=== PATIENT | female | born 1995 | race Caucasian/White ===

== ENCOUNTER 2019-02-19 05:36 | Emergency (ER) | payer OTHER ==
[2019-02-19 06:11] LABS: PLATELET COUNT 589 10^3/uL (150-400)
[2019-02-19] MEDS ORDERED: NS 1,000 ML IV ONE (06:20)
[2019-02-19] MEDS ORDERED: ONDANSETRON 4 MG/2 ML VIAL IVP ONE (06:21)
[2019-02-19] MEDS ORDERED: OXYCODONE/APAP 5/325 TAB PO ONE (06:21)
--- NOTE | 2019-02-19 06:29 | EDPHY ---
H & P Stated Complaint: SICKLE CELL CRISIS, JOINTS, BACK Time Seen by Provider: 02/19/19 05:48 HPI/ROS: HPI The patient presents with painful right elbow, shoulders, knees which occurred at about 5:30 a.m. This morning and awoke her from sleep. She thought maybe she had sprained her elbow, however pain continued. Pain is achy, worse with range of motion. She does not have any fever, shortness of breath, chest pain. She has a history of sickle cell disease, she has been seen by Dr. Banegas here in [place], last in July of 2018. She is not on any daily medications. She previously lived in [place] and had to be admitted to the hospital about once a year, usually in the spring or fall when the weather was changing. She has not taken any pain medication at home, however has a prescription from [facility] from this admission. She is status post splenectomy. She has had acute chest many years ago. REVIEW OF SYSTEMS 10 systems were reviewed and negative with the exception of the elements mentioned in the history of present illness. PMHx: Sickle cell disease as above Soc Hx: Moved to [place] from [place] in May of 2018 PHYSICAL General Appearance: Alert, no distress Eyes: Pupils equal and round no pallor or injection ENT, Mouth: Mucous membranes moist Respiratory: There are no retractions, lungs are clear to auscultation Cardiovascular: Regular rate and rhythm Gastrointestinal: Abdomen is soft and non-tender, no masses, bowel sounds normal Neurological: A&O, moves all extremities Skin: Warm and dry, no rashes Musculoskeletal: Neck is supple non tender Extremities: symmetrical, full range of motion Psychiatric: Patient is oriented X 3, there is no agitation Source: Patient Exam Limitations: No limitations - Personal History LMP (Females 10-55): 1-7 Days Ago Current Tetanus Diphtheria and Acellular Pertussis (TDAP): Yes - Medical/Surgical History Hx Asthma: No Hx Chronic Respiratory Disease: No Hx Diabetes: No Hx Cardiac Disease: No Hx Renal Disease: No Hx Cirrhosis: No Hx Alcoholism: No Hx HIV/AIDS: No Hx Splenectomy or Spleen Trauma: No Other PMH: SICKLE CELL DISEASE, SPLEENECTOMY - Social History Smoking Status: Never smoked Constitutional: Initial Vital Signs Temperature (C) 36.8 C 02/19/19 05:42 Heart Rate 69 02/19/19 05:42 Respiratory Rate 16 02/19/19 05:42 Blood Pressure 129/69 H 02/19/19 05:42 O2 Sat (%) 97 02/19/19 05:42 O2 Delivery Mode Room Air Allergies/Adverse Reactions: Cephalosporins Allergy (Verified 02/19/19 05:41) clindamycin Allergy (Verified 02/19/19 05:41) doxycycline Allergy (Verified 02/19/19 05:41) Penicillins Allergy (Verified 02/19/19 05:41) Sulfa (Sulfonamide Antibiotics) Allergy (Verified 02/19/19 05:41) Home Medications: Medication Instructions Recorded NK [No Known Home Meds] 02/19/19 Medical Decision Making Differential Diagnosis: 23-year-old female with sickle cell disease presents from home with about 1 hr of joint pains. Here, vital signs are normal and she is generally well- appearing. No joint effusions are present. She typically gets pain in her elbows with pain crises so this is not unusual for her. She thinks the change in the weather may have triggered this. She does not have any chest pain, hypoxia, shortness of breath concern for acute chest. She does not have any signs of infection. She says that when her pain is at this level she usually responds to Percocet, Zofran. Labs look to be at her baseline with hemoglobin at about 9. Her reticulocyte count was similar to previous levels. I do not think she is having a severe acute sickle cell crisis, we likely have caused her symptoms early. I looked her up in the [facility] and she does not have any opiate pain medication prescriptions. I looked her up in [facility] and she has not had any visits there. She felt much better after receiving Percocet here. She will be discharged home. I have encouraged her to follow up with Dr. Banegas. - Data Points Laboratory Results: Laboratory Results 02/19/19 06:05 02/19/19 06:05 02/19/19 02/19/19 06:05 06:05 WBC 18.11 10^3/uL H 10^3/uL (3.80-9.50) RBC 4.14 10^6/uL L 10^6/uL (4.18-5.33) Hgb 9.3 g/dL L g/dL (12.6-16.3) Hct 27.9 % L % (38.0-47.0) MCV 67.4 fL L fL (81.5-99.8) MCH 22.5 pg L pg (27.9-34.1) MCHC 33.3 g/dL g/dL (32.4-36.7) RDW 19.9 % H % (11.5-15.2) Plt Count 589 10^3/uL H 10^3/uL (150-400) MPV 9.7 fL fL (8.7-11.7) Neut % (Auto) Not Reported Lymph % (Auto) Not Reported [place] % (Auto) Not Reported Eos % (Auto) Not Reported Baso % (Auto) Not Reported Nucleat RBC Rel Count Not Reported Absolute Neuts (auto) Not Reported Absolute Lymphs (auto) Not Reported Absolute Monos (auto) Not Reported Absolute Eos (auto) Not Reported Absolute Basos (auto) Not Reported Absolute Nucleated RBC Not Reported Immature Gran % Not Reported Seg Neutrophils % 54.1 % % Band Neutrophils % 2.0 % % Lymphocytes % 30.6 % % Monocytes % 9.2 % % Eosinophils % 3.1 % % Basophils % 1.0 % % Metamyelocytes % 0.0 % % Myelocytes % 0.0 % % Promyelocytes % 0.0 % % Blast Cells % 0.0 % % Immature Gran # Not Reported Absolute Seg Neuts 9.80 10^3/uL H 10^3/uL (1.70-6.50) Absolute Band Neuts 0.36 10^3/uL 10^3/uL (0.00-0.70) Absolute Lymphocytes 5.54 10^3/uL H 10^3/uL (1.00-3.00) Absolute Monocytes 1.67 10^3/uL H 10^3/uL (0.30-0.80) Absolute Eosinophils 0.56 10^3/uL H 10^3/uL (0.03-0.40) Absolute Basophils 0.18 10^3/uL H 10^3/uL (0.02-0.10) Absolute Metamyelocyte 0.00 10^3/mL 10^3/mL (0.00-0.00) Absolute Myelocytes 0.00 10^3/mL 10^3/mL (0.00-0.00) Absolute Promyelocytes 0.00 10^3/uL 10^3/uL (0.00-0.00) Absolute Plasma Cells 0.00 10^3/uL 10^3/uL (0.00-0.00) Nucleated RBCs 17.3 /100 WBC H /100 WBC (0-0) Absolute Blast Cells 0.00 10^3/uL 10^3/uL (0.00-0.00) Plasma Cells % 0.0 % % Platelet Estimate INCREASED H (ADEQ) Polychromasia 3+ H Hypochromasia 2+ H Microcytic Cells 1+ H Pappenheimer Bodies 3+ H Target Cells 1+ H Tear Drop Cells 2+ H Oval Macrocytes 1+ H Romero-[place] Bodies 2+ H Elliptocytes 1+ H Schistocytes 1+ H Smear Review By Pending Absolute Retic 0.419 10^6/uL H 10^6/uL (0.050-0.117) Percent Retic 10.40 % H % (0.98-2.67) Sodium 138 mEq/L mEq/L (135-145) Potassium 4.7 mEq/L mEq/L (3.5-5.2) Chloride 106 mEq/L mEq/L (97-110) Carbon Dioxide 23 mEq/l mEq/l (22-31) Anion Gap 9 mEq/L mEq/L (6-14) BUN 7 mg/dL mg/dL (7-23) Creatinine 0.6 mg/dL mg/dL (0.6-1.0) Estimated GFR > 60 Glucose 95 mg/dL mg/dL (70-100) Calcium 9.3 mg/dL mg/dL (8.5-10.4) Total Bilirubin 3.9 mg/dL H mg/dL (0.1-1.4) Conjugated Bilirubin 0.3 mg/dL mg/dL (0.0-0.5) Unconjugated Bilirubin 3.6 mg/dL H mg/dL (0.0-1.1) AST 45 IU/L IU/L (14-46) ALT 43 IU/L IU/L (9-52) Alkaline Phosphatase 63 IU/L IU/L (38-126) Total Protein 7.1 g/dL g/dL (6.3-8.2) Albumin 4.1 g/dL g/dL (3.5-5.0) Medications Given: Discontinued Medications Sodium Chloride (Ns) 1,000 mls @ 0 mls/hr IV EDNOW ONE; Wide Open PRN Reason: Protocol Stop: 02/19/19 06:21 Last Admin: 02/19/19 06:27 Dose: 1,000 mls Ondansetron HCl (Zofran) 4 mg IVP EDNOW ONE Stop: 02/19/19 06:22 Last Admin: 02/19/19 06:27 Dose: 4 mg Oxycodone/Acetaminophen (Percocet 5/325) 2 tab PO EDNOW ONE Stop: 02/19/19 06:22 Last Admin: 02/19/19 06:27 Dose: 2 tab Departure - Departure Disposition: Home, Routine, Self-Care Clinical Impression: Sickle cell pain crisis Condition: Good Instructions: Sickle Cell Crisis (ED) Additional Instructions: Please call for an appointment with her safety patrol officer in 1-2 days. Please return to the emergency department if your worse in any way. Referrals: Jeb Banegas MD [Medical Doctor] - As per Instructions
[2019-02-19 07:37] VITALS: BP 133/52
== END 2019-02-19 07:45 | disposition home or self-care (01) ==
DX: D57.219 Sickle-cell/Hb-C disease with crisis, unspecified (principal); E86.9 Volume depletion, unspecified
CPT/HCPCS: 96374; J2405

== ENCOUNTER 2019-02-19 13:57 | Inpatient (IN) | payer OTHER ==
--- NOTE | 2019-02-19 14:44 | EDPHY ---
H & P Time Seen by Provider: 02/19/19 14:43 HPI/ROS: CHIEF COMPLAINT: Extremity pain, sickle cell crisis HISTORY OF PRESENT ILLNESS: Patient was seen earlier today after waking up between 430 and 5:00 a.m. With pain in her shoulders elbows knees, which is her typical acute sickle cell crisis exacerbation. She moved here from [place] recently to attend [employer] [facility]; was last admitted for her sickle cell about 12 months ago in [place]. She was treated with Percocet and IV fluids and had labs that did not show acute hematologic abnormality and was discharged. She presents now with worsening pain not helped by Percocet which is worsened severe. Not associated with fever chest pain or shortness of breath or headache. Not associated with joint swelling but a little bit worse with movement of extremities. REVIEW OF SYSTEMS: Eye: no change in vision ENT: no sore throat Cardiac: no chest pain or syncope Pulmonary: no cough or SOB Abdomen: no vomiting, diarrhea, abdominal pain Musculoskeletal: HPI Skin: no rash Neuro: no headache Constitutional: no fever : no urinary symptoms A comprehensive 10 point review of systems is otherwise negative aside from elements mentioned in the history of present illness. PAST MEDICAL HISTORY: Includes sickle cell disease, splenectomy, wisdom tooth surgery Social history: Here with her boyfriend, student, recently moved from [place] as above. General Appearance: Alert and conversant, cooperative. Eyes: No scleral icterus. ENT, Mouth: Normal mucous membranes. Respiratory: Normal respiratory effort, breath sounds equal, lungs are clear to auscultation. Speaks in full sentences with no wheezing. Cardiovascular: Regular rate and rhythm. Gastrointestinal: Abdomen is soft and non tender. Neurological: Alert, face symmetric, normal motor and sensory in extremities. Skin: Warm and dry, no rashes. Musculoskeletal: She does not have joint effusions and has good active range of motion of both shoulders and elbows wrists and knees and hips. Psychiatric: Not agitated. Emergency Department course/MDM: Patient presents with clinical exam exacerbation of her sickle cell disease without evidence on history or physical of acute chest syndrome or sepsis. IV morphine 6 mg, saline hydration. Saturation noted at 100%. Discussed with her home health nurse and hospitalist. Smoking Status: Never smoked Constitutional: Initial Vital Signs Temperature (C) 36.9 C 02/19/19 14:08 Heart Rate 58 L 02/19/19 14:08 Respiratory Rate 18 04/22/19 14:08 Blood Pressure 140/91 H 02/19/19 14:08 O2 Sat (%) 100 02/19/19 14:08 O2 Delivery Mode Room Air Allergies/Adverse Reactions: Cephalosporins Allergy (Verified 02/19/19 14:07) clindamycin Allergy (Verified 02/19/19 14:07) doxycycline Allergy (Verified 02/19/19 14:07) Penicillins Allergy (Verified 02/19/19 14:07) Sulfa (Sulfonamide Antibiotics) Allergy (Verified 02/19/19 14:07) Home Medications: Medication Instructions Recorded NK [No Known Home Meds] 02/19/19 Medical Decision Making Differential Diagnosis: Differential for sickle cell and increased pain considered including but not limited to sickle cell crisis, acute chest syndrome, septic joint, aplastic anemia Consult/Admit Bed Type: [place] [id number], [place] [id number] - Data Points Laboratory Results: Laboratory Results 02/19/19 15:10 02/19/19 15:10 02/19/19 02/19/19 02/19/19 15:10 15:10 15:10 WBC 21.49 10^3/uL H 10^3/uL (3.80-9.50) RBC 3.98 10^6/uL L 10^6/uL (4.18-5.33) Hgb 8.6 g/dL L g/dL (12.6-16.3) Hct 25.8 % L % (38.0-47.0) MCV 64.8 fL L fL (81.5-99.8) MCH 21.6 pg L pg (27.9-34.1) MCHC 33.3 g/dL g/dL (32.4-36.7) RDW 20.7 % H % (11.5-15.2) Plt Count 540 10^3/uL H 10^3/uL (150-400) MPV 9.9 fL fL (8.7-11.7) Neut % (Auto) 0.0 % L % (39.3-74.2) Lymph % (Auto) 0.0 % L % (15.0-45.0) [place] % (Auto) 0.0 % L % (4.5-13.0) Eos % (Auto) 0.0 % L % (0.6-7.6) Baso % (Auto) 0.0 % L % (0.3-1.7) Nucleat RBC Rel Count Not Reported Absolute Neuts (auto) 0.00 10^3/uL L 10^3/uL (1.70-6.50) Absolute Lymphs (auto) 0.00 10^3/uL L 10^3/uL (1.00-3.00) Absolute Monos (auto) 0.00 10^3/uL L 10^3/uL (0.30-0.80) Absolute Eos (auto) 0.00 10^3/uL L 10^3/uL (0.03-0.40) Absolute Basos (auto) 0.00 10^3/uL L 10^3/uL (0.02-0.10) Absolute Nucleated RBC 0.00 10^3/uL 10^3/uL (0-0.01) Immature Gran % % % (0.0-1.1) Immature Gran # 10^3/uL 10^3/uL (0.00-0.10) Platelet Estimate TNP Smear Review By TNP Absolute Retic 0.476 10^6/uL H 10^6/uL (0.050-0.117) Percent Retic 11.15 % H % (0.98-2.67) Sodium 130 mEq/L L mEq/L (135-145) Potassium 4.7 mEq/L mEq/L (3.5-5.2) Chloride 100 mEq/L mEq/L (97-110) Carbon Dioxide 21 mEq/l L mEq/l (22-31) Anion Gap 9 mEq/L mEq/L (6-14) BUN 3 mg/dL L mg/dL (7-23) Creatinine 0.5 mg/dL L mg/dL (0.6-1.0) Estimated GFR > 60 Glucose 112 mg/dL H mg/dL (70-100) Calcium 9.0 mg/dL mg/dL (8.5-10.4) Total Bilirubin 3.8 mg/dL H mg/dL (0.1-1.4) Conjugated Bilirubin 0.4 mg/dL mg/dL (0.0-0.5) Unconjugated Bilirubin 3.4 mg/dL H mg/dL (0.0-1.1) AST 46 IU/L IU/L (14-46) ALT 44 IU/L IU/L (9-52) Alkaline Phosphatase 50 IU/L IU/L (38-126) Total Protein 7.0 g/dL g/dL (6.3-8.2) Albumin 4.2 g/dL g/dL (3.5-5.0) Beta HCG, Qual NEGATIVE Medications Given: Folic Acid (Folic Acid) 1 mg PO DAILY ASAEL Stop: 08/18/19 16:14 Last Admin: 02/19/19 16:52 Dose: 1 mg Hydromorphone HCl (Dilaudid) 0.5 - 2 mg IVP Q2HRS PRN PRN Reason: Pain, Severe Stop: 03/01/19 15:27 Last Admin: 02/19/19 17:41 Dose: 0.5 mg Sodium Chloride (Ns) 1,000 mls @ 125 mls/hr IV CONT ASAEL Stop: 08/18/19 15:29 Last Admin: 02/19/19 16:42 Dose: 1,000 mls Ondansetron HCl (Zofran) 4 mg IVP Q4HRS PRN PRN Reason: Nausea/Vomiting, Can't Take PO Stop: 08/18/19 15:27 Last Admin: 02/19/19 17:45 Dose: 4 mg Discontinued Medications Sodium Chloride (Ns) 1,000 mls @ 0 mls/hr IV EDNOW ONE; Wide Open PRN Reason: Protocol Stop: 02/19/19 14:54 Last Admin: 02/19/19 15:08 Dose: 1,000 mls Sodium Chloride (Ns) 1,000 mls @ 0 mls/hr IV EDNOW ONE; Wide Open PRN Reason: Protocol Stop: 02/19/19 15:40 Last Admin: 02/19/19 15:49 Dose: 1,000 mls Morphine Sulfate (Morphine) 6 mg IVP EDNOW ONE Stop: 02/19/19 14:54 Last Admin: 02/19/19 15:07 Dose: 6 mg Departure - Departure Disposition: [facility] In[facility] Acute Clinical Impression: Sickle cell pain crisis Condition: Good
[2019-02-19] MEDS ORDERED: NS 1,000 ML IV ONE ×2 (14:53→15:39)
[2019-02-19 15:26] LABS: PLATELET COUNT 540 10^3/uL (150-400)
[2019-02-19] MEDS ORDERED: ACETAMINOPHEN 325 MG TAB PO PRN ×2 (15:28)
[2019-02-19] MEDS ORDERED: oxyCODONE IR 5 MG TAB PO PRN (15:28)
[2019-02-19] MEDS ORDERED: PROMETHAZINE HCL 25 MG/ML INJ IVP PRN (15:28)
[2019-02-19] MEDS ORDERED: ONDANSETRON DISINTEGRATING 4 MG TAB PO PRN (15:28)
--- NOTE | 2019-02-19 16:01 | PDGENHP ---
History and Physical - Chief Complaint pain - History of Present Illness 23 yo F with PMH of sickle cell disease presenting twice in the same day for complaints of pain involving her right elbow, bilateral shoulders and knees. She notes that she was seen here and when her blood counts were found to be adequate and her pain was controlled she was discharged home this morning, unfortunately since then, her pain has increased and she notes that even taking percocet at home did not touch the pain. She recently moved here from [place] in order to go to school at [employer]. She has established care with Dr. Banegas who is aware of her hospitalization. She notes that in the past she generally has required hospitalization about once per year with pain crisis, and often she will require transfusion at that time. She has not had any recent illness, denies any chest pain or sob, she has not had fever or chills, n/v or urinary complaints. History Information - Allergies/Home Medication List Allergies/Adverse Reactions: Cephalosporins Allergy (Verified 02/19/19 14:07) clindamycin Allergy (Verified 02/19/19 14:07) doxycycline Allergy (Verified 02/19/19 14:07) Penicillins Allergy (Verified 02/19/19 14:07) Sulfa (Sulfonamide Antibiotics) Allergy (Verified 02/19/19 14:07) Home Medications: NK [No Known Home Meds] 02/19/19 [Last Taken Unknown] I have personally reviewed and updated: family history, medical history, social history, surgical history - Past Medical History Additional medical history: sickle cell disease - Surgical History Additional surgical history: splenectomy - Family History Positive for: non-pertinent - Social History Smoking Status: Never smoked Alcohol Use: None Drug Use: None Additional social history: here with boyfriend, [employer] student Review of Systems Review of Systems: ROS: 10pt was reviewed & negative except for what was stated in HPI & below Physical Exam Physical Exam: Temp Pulse Resp BP Pulse Ox 36.9 C 55 L 18 139/89 H 90 L 02/19/19 14:08 02/19/19 15:45 02/19/19 15:45 02/19/19 15:45 02/19/19 15:45 O2 (L/minute) 2 Constitutional: no apparent distress, appears nourished Eyes: PERRL, anicteric sclera Ears, Nose, Mouth, Throat: moist mucous membranes, hearing normal Cardiovascular: regular rate and rhythym, no murmur, rub, or gallop Respiratory: no respiratory distress, no rales or rhonchi Gastrointestinal: normoactive bowel sounds, soft, non-tender abdomen Genitourinary: no bladder tenderness Skin: warm, normal color Musculoskeletal: full muscle strength, no muscle tenderness Neurologic: AAOx3 Psychiatric: interacting appropriately, not anxious, not encephalopathic Lab Data & Imaging Review 02/19/19 15:10 02/19/19 15:10 WBC 21.49 10^3/uL (3.80-9.50) H 02/19/19 15:10 RBC 3.98 10^6/uL (4.18-5.33) L 02/19/19 15:10 Hgb 8.6 g/dL (12.6-16.3) L 02/19/19 15:10 Hct 25.8 % (38.0-47.0) L 02/19/19 15:10 MCV 64.8 fL (81.5-99.8) L 02/19/19 15:10 MCH 21.6 pg (27.9-34.1) L 02/19/19 15:10 MCHC 33.3 g/dL (32.4-36.7) 02/19/19 15:10 RDW 20.7 % (11.5-15.2) H 02/19/19 15:10 Plt Count 540 10^3/uL (150-400) H 02/19/19 15:10 MPV 9.9 fL (8.7-11.7) 02/19/19 15:10 Percent Retic 11.15 % (0.98-2.67) H 02/19/19 15:10 Sodium 130 mEq/L (135-145) L 02/19/19 15:10 Potassium 4.7 mEq/L (3.5-5.2) 02/19/19 15:10 Chloride 100 mEq/L (97-110) 02/19/19 15:10 Carbon Dioxide 21 mEq/l (22-31) L 02/19/19 15:10 Anion Gap 9 mEq/L (6-14) 02/19/19 15:10 BUN 3 mg/dL (7-23) L 02/19/19 15:10 Creatinine 0.5 mg/dL (0.6-1.0) L 02/19/19 15:10 Estimated GFR > 60 02/19/19 15:10 Glucose 112 mg/dL (70-100) H 02/19/19 15:10 Calcium 9.0 mg/dL (8.5-10.4) 02/19/19 15:10 Total Bilirubin 3.8 mg/dL (0.1-1.4) H 02/19/19 15:10 Conjugated Bilirubin 0.4 mg/dL (0.0-0.5) 02/19/19 15:10 Unconjugated Bilirubin 3.4 mg/dL (0.0-1.1) H 02/19/19 15:10 AST 46 IU/L (14-46) 02/19/19 15:10 ALT 44 IU/L (9-52) 02/19/19 15:10 Alkaline Phosphatase 50 IU/L (38-126) 02/19/19 15:10 Total Protein 7.0 g/dL (6.3-8.2) 02/19/19 15:10 Albumin 4.2 g/dL (3.5-5.0) 02/19/19 15:10 Beta HCG, Qual NEGATIVE 02/19/19 15:10 Assessment & Plan Assessment: 23 yo F with PMH of SCD presenting with acute pain crisis # sickle cell pain crisis: h/h are currently stable, pain largely in joints and denies chest pain--nothing to suggest acute chest. She is followed by Dr. Banegas who has been consulted. For now, plan pain management and IVF as she notes that dehydration is often a precipitant and she has had poor po intake recently. Will get cxr if develops hypoxia/chest pain/sob. # anemia, chronic: in setting of above, currently appears stable over the last 24 hours but will repeat in am, has not required transfusion recently, will transfuse for h/h < 7/ # leukocytosis: quite elevated and has been trending up overnight, without any infectious complaints and likely stress response, will continue to trend # hyponatremia: suspected hypovolemic hyponatremia in setting of above, will trend post IVF # hyperglycemia: suspect stress response, has not been present previously # hyperbilirubinemia: unconjugated, suspect [place] # observation status Patient new to my care. Old records reviewed and summarized as above. Care plan reviewed with ER doctor as above. Further hx obtained from patients partner present at bedside.
[2019-02-19] MEDS: HYDROmorphONE/DILAUDID 1 MG/ML INJ IVP PRN ×4 (16:32→23:20)
[2019-02-19] MEDS: NS 1,000 ML IV SCH (16:42)
[2019-02-19] MEDS: FOLIC ACID 1 MG TAB PO SCH (16:52)
[2019-02-19] MEDS: ONDANSETRON 4 MG/2 ML VIAL IVP PRN (17:45)
[2019-02-19] MEDS: HYDROCODONE/APAP 5/325 TAB PO PRN (19:10)
--- NOTE | 2019-02-19 19:59 | GCON ---
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 In the fall of 2017, she moved to [place] to attend school. This morning early, she developed pain in her arms, symmetrical, which was quite significant. She came to the emergency room, was given Percocet and IV fluids, and was discharged. However, her pain worsened, and she came in to the ER again and was admitted for management. 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 She is not on chronic pain medication. She runs hemoglobins in the 8 to 9 range. She is a nonsmoker and has otherwise been healthy. Her mother has sickle trait, and her father has thalassemia. REVIEW OF SYSTEMS: She denies headaches. Denies cough. Denies recent fevers. Denies any urinary symptoms. PHYSICAL EXAMINATION: GENERAL: Today, she is in mild distress, but quite alert. VITAL SIGNS: Blood pressure 139/89 and O2 saturation 90%. HEENT: She is not icteric. NECK: I detect no adenopathy. LUNGS: Clear. CARDIAC: Exam is unremarkable. ABDOMEN: Benign. EXTREMITIES: No edema. NEUROLOGIC: Exam is nonfocal. LABORATORY DATA: White count is 21,000, hemoglobin 8.6, hematocrit 25.8, and platelets 540,000. Reticulocyte count is 11%. Bilirubin is 3.8. Sodium 130 and potassium 4.7. Liver function tests are otherwise unremarkable. Beta hCG is negative. IMPRESSION: Patient with sickle beta thalassemia trait, with a painful crisis involving primarily her arms. White count and reticulocyte count are high. Currently, her pain has been managed with intravenous morphine. PLAN: The plan at this time is to admit. We will administer IV fluids, pain medications, and oxygen. I will start folate 1 mg a day, and I think a baseline chest x-ray would be reasonable. She has not been on Hydrea. If she is having recurrent sickle crisis, then that might be a consideration. Some authorities consider 3 or more crisis per year as an indication for starting Hydrea. /[id number]/MODL MTDD
[2019-02-19] MEDS ORDERED: LORazepam 0.5 MG TAB PO ONE (23:38)
[2019-02-20] MEDS: HYDROmorphONE/DILAUDID 1 MG/ML INJ IVP PRN (01:38)
[2019-02-20] MEDS ORDERED: HYDROmorphONE/DILAUDID 1 MG/ML INJ IVP ONE (01:50)
[2019-02-20] MEDS: ONDANSETRON 4 MG/2 ML VIAL IVP PRN ×2 (01:50→19:10)
[2019-02-20] MEDS ORDERED: NALOXONE HCL 0.4 MG/ML INJ IVP PRN (01:50)
[2019-02-20] MEDS ORDERED: HYDROmorphONE/DILAUDID 1 MG/ML INJ IVP PRN (02:00)
--- NOTE | 2019-02-20 02:02 | HOSPPROG ---
Hospitalist Progress Note Assessment/Plan: XC: Patient continues to be in severe pain despite PRN Dilaudid. She complains of extremity pain but no chest pain, fever, or hypoxia to suggest ACS. I will place patient on Dilaudid MILIEU COUNSELOR for improved pain control. Objective: Vital Signs Temp Pulse Resp BP Pulse Ox 36.9 C 57 L 16 136/85 H 92 02/20/19 01:46 02/20/19 01:46 02/20/19 01:46 02/20/19 01:46 02/20/19 01:46 02/18/19 02/19/19 02/20/19 05:59 05:59 05:59 Intake Total 2100 Output Total 1000 Balance 1100 ICD10 Worksheet Patient Problems: Problems Problem Status Onset Sickle cell pain crisis Acute
[2019-02-20] MEDS: HYDROmorphONE/DILAUDID 6 MG/30 ML PCA IV PRN ×2 (02:12→23:19)
[2019-02-20 05:24] LABS: PLATELET COUNT 427 10^3/uL (150-400)
[2019-02-20] MEDS: NS 1,000 ML IV SCH ×2 (07:52→16:24)
[2019-02-20] MEDS ORDERED: MAGNESIUM HYDROXIDE 30 ML UDCUP PO PRN (09:37)
[2019-02-20] MEDS ORDERED: LACTULOSE 20 GM/30 ML UDCUP PO PRN (09:37)
[2019-02-20] MEDS ORDERED: BISACODYL 10 MG SUPP PR PRN (09:37)
[2019-02-20] MEDS ORDERED: POLYETHYLENE GLYCOL 3350 17 GM PKT PO PRN (09:37)
--- NOTE | 2019-02-20 09:57 | HOSPPROG ---
Hospitalist Progress Note Assessment/Plan: # sickle cell pain crisis - overall slightly improved today - cont [employer] DESIGN[employer] today # anemia - stable - no need for transfusion today # leukocytosis - worse today, likely stress response but will follow closely Subjective: pain better, but still needs [employer] DESIGNER to control pain; still feels dehydrated Objective: Vital Signs Temp Pulse Resp BP Pulse Ox 36.9 C 67 16 143/68 H 92 02/20/19 09:19 02/20/19 09:19 02/20/19 09:19 02/20/19 09:21 02/20/19 09:19 Laboratory Results 02/20/19 04:30 02/20/19 04:30 02/19/19 02/20/19 02/21/19 05:59 05:59 05:59 Intake Total 2100 Output Total 1000 Balance 1100 high risk on IV narcotics - Physical Exam Constitutional: no apparent distress Cardiovascular: regular rate and rhythym, no murmur, rub, or gallop Respiratory: no respiratory distress, no rales or rhonchi Gastrointestinal: soft, non-tender abdomen, no palpable masses, No guarding, No rebound ICD10 Worksheet Patient Problems: Problems Problem Status Onset Sickle cell pain crisis Acute
[2019-02-20] MEDS: FOLIC ACID 1 MG TAB PO SCH (10:02)
--- NOTE | 2019-02-20 11:12 | SOAPPROG ---
SOAP Progress Note Assessment/Plan: Assessment: 1, Sicle/b thal 2.Pain crisis 3. abnormal cxr Plan:Continue O2, fluids, pain meds, transfuse 1 unit prbcs 02/20/19 11:09 Subjective: Pain better Objective: Vital Signs Temp Pulse Resp BP Pulse Ox 98.6 F 79 16 172/100 H 96 02/20/19 11:07 02/20/19 11:07 02/20/19 11:07 02/20/19 11:07 02/20/19 11:07 Laboratory Results 02/20/19 04:30 02/20/19 04:30 02/19/19 02/20/19 02/21/19 05:59 05:59 05:59 Intake Total 2100 Output Total 1000 Balance 1100 Physical Exam - Physical Exam General Appearance: alert, mild distress Respiratory: lungs clear, normal breath sounds Cardiac/Chest: regular rate, rhythm Abdomen: normal bowel sounds, non-tender ICD10 Worksheet Patient Problems: Problems Problem Status Onset Sickle cell pain crisis Acute
--- NOTE | 2019-02-20 13:40 | PDMN ---
Medical Necessity Medical necessity: MCG: M331 sickle cell disease A-2 days: ?Pain insufficiently responsive to observation care treatment that requires treatment in inpatient setting (eg, parenteral opioids, HOME ECONOMICS TEACHER) status changed to INPT for ongoing med nec. pain cont. 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 cxr: showing acute chest syndrome, superimposed pulm. edema or bacterial pna cannot be radiographically excluded.- ongoing monitoring needed
[2019-02-20] MEDS: SENNOSIDES/DOCUSATE SODIUM TAB PO SCH (21:09)
[2019-02-21 05:18] LABS: PLATELET COUNT 429 10^3/uL (150-400)
[2019-02-21] MEDS: SENNOSIDES/DOCUSATE SODIUM TAB PO SCH ×2 (09:11→20:49)
[2019-02-21] MEDS: FOLIC ACID 1 MG TAB PO SCH (09:11)
--- NOTE | 2019-02-21 10:16 | ASMTCMCOM ---
CM Note CM Note Notes: Patietnt plan of care reviewed in am rounds. 23 year old female presented to ED with sickle cell crisis. Admitted for pain control and hydration. Recently moved here from [place] to attend [facility]. Supprtive measure to treat. Likely independent upon dc. CM available should needs arise. Plan: Independent Date Signed: 02/21/2019 10:15 AM Electronically Signed By:Leighann Matthews
--- NOTE | 2019-02-21 11:04 | SOAPPROG ---
SOAP Progress Note Assessment/Plan: Assessment: 1, Sickle/b thalassemia, good response to txn 2.Pain crisis, pain seems to be decreasing 3. abnormal cxr Plan:Perhaps 1 more day, ferritin 500 02/20/19 11:09 02/21/19 11:00 Subjective: Pain better Objective: Vital Signs Temp Pulse Resp BP Pulse Ox 98.6 F 81 16 112/66 90 L 02/21/19 10:00 02/21/19 10:00 02/21/19 10:00 02/21/19 10:00 02/21/19 10:00 Laboratory Results 02/21/19 04:36 02/20/19 02/21/19 02/22/19 05:59 05:59 05:59 Intake Total 2870 Output Total 1800 Balance 1070 Physical Exam - Physical Exam General Appearance: no apparent distress Respiratory: lungs clear, normal breath sounds Cardiac/Chest: regular rate, rhythm Abdomen: normal bowel sounds, non-tender ICD10 Worksheet Patient Problems: Problems Problem Status Onset Sickle cell pain crisis Acute
[2019-02-21] MEDS ORDERED: HYDROmorphONE/DILAUDID 1 MG/ML INJ IVP PRN (12:41)
--- NOTE | 2019-02-21 13:24 | HOSPPROG ---
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 Afebrile. No respiratory complaints. No need for abx at this time. SCD's Subjective: no cp or sob. sickle cell pain crisis is improving Objective: Vital Signs Temp Pulse Resp BP Pulse Ox 37.0 C 81 16 112/66 90 L 02/21/19 10:00 02/21/19 10:00 02/21/19 10:00 02/21/19 10:00 02/21/19 10:00 Laboratory Results 02/21/19 04:36 02/20/19 02/21/19 02/22/19 05:59 05:59 05:59 Intake Total 2870 Output Total 1800 Balance 1070 - Physical Exam Constitutional: no apparent distress Eyes: PERRL, EOMI Ears, Nose, Mouth, Throat: moist mucous membranes, hearing normal Cardiovascular: regular rate and rhythym, No edema Respiratory: no respiratory distress, no rales or rhonchi, clear to auscultation Gastrointestinal: normoactive bowel sounds Skin: warm Neurologic: AAOx3 Psychiatric: interacting appropriately, not anxious, not encephalopathic Lymph, Heme, Immunologic: No petechiae ICD10 Worksheet Patient Problems: Problems Problem Status Onset Sickle cell pain crisis Acute
[2019-02-21] MEDS: HYDROCODONE/APAP 5/325 TAB PO PRN ×3 (15:24→21:40)
[2019-02-21] MEDS: NS 1,000 ML IV SCH (19:56)
[2019-02-22] MEDS: HYDROCODONE/APAP 5/325 TAB PO PRN ×2 (01:27→06:34)
[2019-02-22 06:22] LABS: PLATELET COUNT 435 10^3/uL (150-400)
[2019-02-22 07:20] VITALS: BP 130/62
[2019-02-22] MEDS: SENNOSIDES/DOCUSATE SODIUM TAB PO SCH (08:24)
[2019-02-22] MEDS: FOLIC ACID 1 MG TAB PO SCH (08:24)
[2019-02-22] MEDS ORDERED: HYDROCODONE/APAP 10/325 TAB PO PRN (12:00)
--- NOTE | 2019-02-22 12:08 | SOAPPROG ---
SOAP Progress Note Assessment/Plan: Assessment: 1, Sickle/b thalassemia, good response to txn 2.Pain crisis, pain much better 3. abnormal cxr Plan:Home today, follow up with me approx 2 weeks 02/20/19 11:09 02/21/19 11:00 02/22/19 12:06 Subjective: Pain much better Objective: Vital Signs Temp Pulse Resp BP Pulse Ox 98.2 F 77 16 130/62 H 90 L 02/22/19 07:15 02/22/19 07:15 02/22/19 07:15 02/22/19 07:15 02/22/19 07:15 Laboratory Results 02/22/19 04:40 02/21/19 02/22/19 02/23/19 05:59 05:59 05:59 Intake Total 2870 0 Output Total 1800 Balance 1070 0 ICD10 Worksheet Patient Problems: Problems Problem Status Onset Sickle cell pain crisis Acute
--- NOTE | 2019-02-22 12:29 | PDDCSUM ---
Discharge Summary Discharge Summary: 23 yo female admitted with sickle cell pain crisis. Now back to baseline per below F/U: with Dr. Banegas in 2 weeks Pain meds provided DDX: # sickle cell pain crisis: resolved # anemia - stable - s/p 1 unit PRBC during this admission # leukocytosis - likely stress response but will follow closely -no e/o infection or Acute chest syndrome. Afebrile. No respiratory complaints. No need for abx at this time. Exam: NAD AAOX3 RRR CTA B S/NT/ND MEDS: SEE MED REC TOTAL TIME SPENT ON D/C IS 35 MINS
--- NOTE | 2019-02-22 13:31 | ASMTLACE ---
JUSTEN Length of stay for Answers: 2 days current admission Acuity / Level of Answers: No Care: Did the patient have an inpatient admission? Comorbidities - select Answers: Other Notes: Sickle cell disease all that apply # of Emergency department Answers: 1-2 visits in the last 6 months Score: 4 Date Signed: 02/22/2019 01:31 PM Electronically Signed By:Leighann Matthews
--- NOTE | 2019-02-22 13:41 | ASMTCMCOM ---
CM Note CM Note Notes: PLAN: Pt discharge to home independently with no needs identified. Date Signed: 02/22/2019 01:40 PM Electronically Signed By:Leighann Matthews
== END 2019-02-22 13:51 | disposition home or self-care (01) | DRG 812 ==
LOC: F1N 16:13 → OBSVTOIN 02-20 09:46
PROVIDERS: ADMIT Internal Medicine; ATTEND Internal Medicine
PROC: 30233N1 Transfusion of Nonautologous Red Blood Cells into Peripheral Vein, Percutaneous Approach (ICD-10-PCS; principal; 2019-02-20)
DX: D57.00 Hb-SS disease with crisis, unspecified (principal); E86.9 Volume depletion, unspecified
CPT/HCPCS: 86905-90; 96374; G0378; J1170; J1200; J2270; J2405; P9016